=== PATIENT | female | born 1985 | race Caucasian/White ===

== ENCOUNTER 2018-02-27 09:58 | Emergency (ER) | payer MEDICAID ==
[~2018-02-27] VITALS: Ht 167.6 cm; Wt 54.5 kg
[~2018-02-27 09:58] MED LIST: BISA-77 PO; CEPH500C5 PO; DICY10CA88 PO; FLO0.4C PO; HYDR-565 PO; HYDR-569 PO; ONDA4TAB12 PO; ONDA8TAB6 PO; PHE25R PR; POTA20TA19 PO; PROC-8 PO; PROC25SU31 RC; ZOF4T PO
[2018-02-27] MEDS ORDERED: LIDOcaine 1% 30ml preserv. free vial IJ ONE (10:35)
[2018-02-27] MEDS ORDERED: TETanus/Pertussis (Acell)/Diphther VAC/PF (Tdap-Adult) 0.5ml syringe IM ONE (10:35)
[2018-02-27] MEDS ORDERED: HYDROcodone/acetaminophen 10/325mg tab PO ONE ×2 (10:35→12:40)
[2018-02-27] MEDS ORDERED: IBUP-1984 PO (12:58)
[2018-02-27] MEDS ORDERED: AMOX-580 PO (12:58)
[2018-02-27 13:13] VITALS: BP 114/73
[2018-02-28] MEDS ORDERED: HYDR-565 PO (03:39)
== END 2018-02-27 13:17 | disposition home or self-care (01) ==
LOC: ER 09:58
DX: S61.451A Open bite of right hand, initial encounter (principal); J45.909 Unspecified asthma, uncomplicated; Z90.89 Acquired absence of other organs; Z90.710 Acquired absence of both cervix and uterus; F12.90 Cannabis use, unspecified, uncomplicated; Z88.6 Allergy status to analgesic agent; Z88.8 Allergy status to other drugs, medicaments and biological substances; Z98.890 Other specified postprocedural states; Z79.899 Other long term (current) drug therapy; Z56.0 Unemployment, unspecified; W54.0XXA Bitten by dog, initial encounter; Y93.K1 Activity, walking an animal; Y92.89 Other specified places as the place of occurrence of the external cause; Y99.8 Other external cause status
CPT/HCPCS: 73130; 99284; A6222; J3490

== ENCOUNTER 2018-02-28 02:54 | Emergency (ER) | payer MEDICAID ==
[~2018-02-28] VITALS: Ht 167.6 cm; Wt 60.9 kg
[~2018-02-28 02:54] MED LIST changes: +AMOX-580 PO; +IBUP-1984 PO
[2018-02-28 03:08] VITALS: BP 116/85
[2018-02-28] MEDS ORDERED: ondansetron 4mg rapidly disintigrating tab PO ONE (03:20)
[2018-02-28] MEDS ORDERED: HYDROcodone/acetaminophen 10/325mg tab PO ONE (03:20)
[2018-02-28] MEDS ORDERED: morphine 4 MG/ML inj SYRINge IM ONE (03:20)
[2018-02-28] MEDS ORDERED: HYDR-565 PO (03:39)
== END 2018-02-28 04:01 | disposition home or self-care (01) ==
LOC: ER 02:55
DX: S61.451A Open bite of right hand, initial encounter (principal); F12.90 Cannabis use, unspecified, uncomplicated; J45.909 Unspecified asthma, uncomplicated; Z90.49 Acquired absence of other specified parts of digestive tract; Z90.710 Acquired absence of both cervix and uterus; Z88.6 Allergy status to analgesic agent; Z88.8 Allergy status to other drugs, medicaments and biological substances; Z79.899 Other long term (current) drug therapy; Z56.0 Unemployment, unspecified; W54.0XXA Bitten by dog, initial encounter; Y93.89 Activity, other specified; Y92.89 Other specified places as the place of occurrence of the external cause; Y99.8 Other external cause status
CPT/HCPCS: 96372; 99283; J2270

== ENCOUNTER 2019-01-27 02:34 | Emergency (ER) | payer MEDICAID ==
[~2019-01-27] VITALS: Ht 167.6 cm; Wt 52.7 kg
[~2019-01-27 02:34] MED LIST changes: -AMOX-580 PO; -CEPH500C5 PO; +HYDR-4353 PO; +HYDR-4383 PO; -HYDR-565 PO; -IBUP-1984 PO
[2019-01-27 03:01] VITALS: BP 130/83
--- NOTE | 2019-01-27 03:10 | NUR ---
DR HALL AT BEDSIDE WITH PT
[2019-01-27] MEDS ORDERED: acetaminophen 325mg tablet PO ONE (03:20)
[2019-01-27] MEDS ORDERED: traMADol 50MG tablet PO ONE (03:20)
[2019-01-27] MEDS ORDERED: CefTRIAXone 2gm/D5W 50ml 50 ML IV ONE (03:20)
[2019-01-27] MEDS ORDERED: ondansetron/PF 4mg/2ml inj IV ONE (03:20)
[2019-01-27] MEDS ORDERED: normal saline 1000ml 1,000 ML IV ONE ×2 (03:20→04:35)
--- NOTE | 2019-01-27 04:11 | NUR ---
PT REFUSED PO RX DUE TO VOMITING. ASKED DR HALL FOR IV RX INSTEAD WHICH HE DENIED. ADVISED PT OF DR HALLS DECISION AND PT CONTINUED TO REFUSE PO RX.
[2019-01-27 04:14] LABS: BASOPHILS # (AUTO) 0.1 X10'3 (0-0.2); BASOPHILS % (AUTO) 0.7 % (0-1); EOSINOPHILS % (AUTO) 0.3 % (0-6); HEMATOCRIT 38.4 % (35.0-45.0); HEMOGLOBIN 12.9 g/dl (12.0-16.0); LYMPHOCYTES # (AUTO) 1.1 X10'3 (1.1-4.8); LYMPHOCYTES % (AUTO) 11.5 % (21-51); MEAN CORPUSCULAR HEMOGLOBIN 28.9 PG (27.0-31.0); MEAN CORPUSCULAR HGB CONC 33.6 g/dL (33.0-36.5); MEAN CORPUSCULAR VOLUME 85.9 FL (78-98); MEAN PLATELET VOLUME 7.7 FL (7.4-10.4); MONOCYTES # (AUTO) 0.9 X10'3 (0-0.9); MONOCYTES % (AUTO) 9.4 % (2-12); NEUTROPHILS # (AUTO) 7.6 X10'3 (1.8-7.7); NEUTROPHILS % (AUTO) 78.1 % (42-75); PLATELET COUNT 291 X10'3 (140-440); RED BLOOD COUNT 4.47 X10'6 (4.20-5.60); RED CELL DISTRIBUTION WIDTH 13.2 % (11.5-14.5); WHITE BLOOD COUNT 9.7 X10'3 (4.5-11.0)
[2019-01-27 04:32] LABS: ALANINE AMINOTRANSFERASE 104 U/L (12-78); ALBUMIN 3.3 G/DL (3.4-5.0); ALBUMIN/GLOBULIN RATIO 0.8 (1.1-1.5); ALKALINE PHOSPHATASE 94 IU/L (46-116); ANION GAP 8 (8-16); ASPARTATE AMINO TRANSFERASE 28 U/L (10-37); BILIRUBIN,TOTAL 0.2 MG/DL (0.1-1.0); BLOOD UREA NITROGEN 8 MG/DL (7-18); BUN/CREATININE RATIO 10.3 (6.6-38.0); CHLORIDE 103 MMOL/L (99-107); CREATININE 0.78 MG/DL (0.40-0.90); GLUCOSE 103 MG/DL (70-104); SODIUM 136 MMOL/L (135-145); TOTAL CARBON DIOXIDE 25.5 MMOL/L (24-32); TOTAL PROTEIN 7.5 G/DL (6.4-8.2); eGFR 85 ML/MIN
== END 2019-01-27 04:51 | disposition left against medical advice (07) ==
LOC: ER 02:35
DX: R10.9 Unspecified abdominal pain (principal); J45.909 Unspecified asthma, uncomplicated; F12.90 Cannabis use, unspecified, uncomplicated; Z56.0 Unemployment, unspecified; Z87.442 Personal history of urinary calculi; Z87.11 Personal history of peptic ulcer disease; Z90.49 Acquired absence of other specified parts of digestive tract; Z98.890 Other specified postprocedural states; Z90.710 Acquired absence of both cervix and uterus; Z79.899 Other long term (current) drug therapy; Z88.8 Allergy status to other drugs, medicaments and biological substances; Z88.6 Allergy status to analgesic agent
CPT/HCPCS: 36415; 80053; 85025; 96365; 96375; 99283; J0696; J2405; J7030